=== PATIENT | female | born 1950 | race Caucasian/White ===

== ENCOUNTER 2017-10-10 18:41 | Emergency (ER) | payer OTHER ==
[2017-10-10] MEDS ORDERED: ONDANSETRON 4 MG/2 ML VIAL IVP ONE (18:53)
[2017-10-10] MEDS ORDERED: NS 1,000 ML IV ONE ×2 (18:53→19:49)
[2017-10-10 19:08] LABS: PLATELET COUNT 338 10^3/uL (150-400)
[2017-10-10] MEDS ORDERED: ACETAMINOPHEN 500 MG TAB PO ONE (19:50)
--- NOTE | 2017-10-10 20:41 | EDPHY ---
H & P Time Seen by Provider: 10/10/17 18:50 HPI/ROS: 66 yo F presents c/o vomiting and diarrhea that began at 2am, and continued all day, she feels dehydrated. She states she also has a headache. The headache is left sided and typical of headaches that she gets on a regular basis, shes sees a chiropracter for these headaches. She states they are often worsened with dehydration. Past Medical/Surgical History: gerd, htn Social History: denies alcohol or drug use Smoking Status: Former smoker Physical Exam: 66-year-old female alert and oriented no acute distress nontoxic appearance HEENT atraumatic normocephalic, extraocular muscles intact, anicteric Oropharynx negative for erythema negative exudate, tolerating her own secretions Neck supple no meningismus Lungs clear to auscultation bilaterally Heart regular rate and rhythm without murmur rub or gallop Abdomen nondistended normoactive bowel sounds soft nontender Back no CVA tenderness, no step-offs, no spinal tenderness Extremities no cyanosis clubbing or edema Neuro alert and oriented, no focal deficits Constitutional: Initial Vital Signs Temperature (C) 37.1 C 10/10/17 18:47 Heart Rate 112 H 10/10/17 18:47 Respiratory Rate 16 10/10/17 18:47 Blood Pressure 137/85 H 10/10/17 18:47 O2 Sat (%) 94 10/10/17 18:47 O2 Delivery Mode Room Air Allergies/Adverse Reactions: aspirin [Aspirin] Allergy (Severe, Verified 10/10/17 18:44) lisinopril [Lisinopril] Adverse Reaction (Mild, Verified 10/10/17 18:44) COUGH Home Medications: Medication Instructions Recorded Omeprazole 10/10/17 amLODIPine BESYLATE [Amlodipine 10/10/17 Besylate] amLODIPine BESYLATE [Norvasc 10 mg 10/10/17 (*)] Medical Decision Making ED Course/Re-evaluation: Patient seen and evaluated for vomiting, diarrhea, headache. IV established fluids started, ondansetron 4 mg IV push given Lab sent CBC within normal limits CMP within normal limits, except slightly decreased potassium 3.2 Patient feeling markedly better after initial fluids and ondansetron no longer having nausea but continues to have a headache, similar to headaches that she has had for many years she currently rates at a 5/10. Next she was given metoclopramide, diphenhydramine and Toradol After these medication she had complete relief of her headache and is now tolerating po. imp Gastroenteritis Headache Plan Discharge home Rest Follow up with primary care physician - Data Points Laboratory Results: Laboratory Results 10/10/17 19:00 10/10/17 19:00 10/10/17 10/10/17 19:00 19:00 WBC 10.18 10^3/uL H 10^3/uL (3.80-9.50) RBC 5.42 10^6/uL H 10^6/uL (4.18-5.33) Hgb 16.2 g/dL g/dL (12.6-16.3) Hct 47.4 % H % (38.0-47.0) MCV 87.5 fL fL (81.5-99.8) MCH 29.9 pg pg (27.9-34.1) MCHC 34.2 g/dL g/dL (32.4-36.7) RDW 12.6 % % (11.5-15.2) Plt Count 338 10^3/uL 10^3/uL (150-400) MPV 10.0 fL fL (8.7-11.7) Neut % (Auto) 88.2 % H % (39.3-74.2) Lymph % (Auto) 6.6 % L % (15.0-45.0) [place] % (Auto) 4.2 % L % (4.5-13.0) Eos % (Auto) 0.1 % L % (0.6-7.6) Baso % (Auto) 0.6 % % (0.3-1.7) Nucleat RBC Rel Count 0.0 % % (0.0-0.2) Absolute Neuts (auto) 8.98 10^3/uL H 10^3/uL (1.70-6.50) Absolute Lymphs (auto) 0.67 10^3/uL L 10^3/uL (1.00-3.00) Absolute Monos (auto) 0.43 10^3/uL 10^3/uL (0.30-0.80) Absolute Eos (auto) 0.01 10^3/uL L 10^3/uL (0.03-0.40) Absolute Basos (auto) 0.06 10^3/uL 10^3/uL (0.02-0.10) Absolute Nucleated RBC 0.00 10^3/uL 10^3/uL (0-0.01) Immature Gran % 0.3 % % (0.0-1.1) Immature Gran # 0.03 10^3/uL 10^3/uL (0.00-0.10) Sodium 139 mEq/L mEq/L (135-145) Potassium 3.3 mEq/L L mEq/L (3.5-5.2) Chloride 104 mEq/L mEq/L (97-110) Carbon Dioxide 22 mEq/l mEq/l (22-31) Anion Gap 13 mEq/L mEq/L (8-16) BUN 16 mg/dL mg/dL (7-23) Creatinine 0.9 mg/dL mg/dL (0.6-1.0) Estimated GFR > 60 Glucose 114 mg/dL H mg/dL (70-100) Calcium 9.4 mg/dL mg/dL (8.5-10.4) Total Bilirubin 0.7 mg/dL mg/dL (0.1-1.4) AST 16 IU/L IU/L (14-46) ALT 23 IU/L IU/L (9-52) Alkaline Phosphatase 80 IU/L IU/L (38-126) Total Protein 7.0 g/dL g/dL (6.3-8.2) Albumin 4.0 g/dL g/dL (3.5-5.0) Medications Given: Discontinued Medications Acetaminophen (Tylenol) 1,000 mg PO EDNOW ONE Stop: 10/10/17 19:51 Last Admin: 10/10/17 19:52 Dose: 1,000 mg Diphenhydramine HCl (Benadryl Injection) 25 mg IVP EDNOW ONE Stop: 10/10/17 20:52 Last Admin: 10/10/17 21:03 Dose: 25 mg Sodium Chloride (Ns) 1,000 mls @ 0 mls/hr IV ONCE ONE PRN Reason: Wide Open Stop: 10/10/17 18:54 Last Admin: 10/10/17 18:58 Dose: 1,000 mls Sodium Chloride (Ns) 1,000 mls @ 0 mls/hr IV ONCE ONE PRN Reason: Wide Open Stop: 10/10/17 19:50 Last Admin: 10/10/17 19:53 Dose: 1,000 mls Ketorolac Tromethamine (Toradol) 30 mg IVP EDNOW ONE Stop: 10/10/17 20:52 Last Admin: 10/10/17 21:02 Dose: 30 mg Metoclopramide HCl (Reglan Injection) 10 mg IVP EDNOW ONE Stop: 10/10/17 20:52 Last Admin: 10/10/17 21:04 Dose: 10 mg Ondansetron HCl (Zofran) 4 mg IVP EDNOW ONE Stop: 10/10/17 18:54 Last Admin: 10/10/17 18:58 Dose: 4 mg Departure - Departure Disposition: Home, Routine, Self-Care Clinical Impression: Vomiting and diarrhea, Dehydration, Headache Condition: Good Instructions: Dehydration (ED), Gastroenteritis (ED), Acute Headache (ED) Referrals: JAIDA GALVAN [Other] - As per Instructions
[2017-10-10] MEDS ORDERED: METOCLOPRAMIDE 10 MG/2 ML VIAL IVP ONE (20:51)
[2017-10-10] MEDS ORDERED: KETOROLAC 30 MG/1 ML SDV IVP ONE (20:51)
[2017-10-10 22:21] VITALS: BP 139/79
== END 2017-10-10 22:22 | disposition home or self-care (01) ==
LOC: CED 18:41
DX: E86.0 Dehydration (principal); R51 Headache; I10 Essential (primary) hypertension; Z87.891 Personal history of nicotine dependence
CPT/HCPCS: 80053-PO; 85025-PO; 96374; J1200; J1885; J2405; J2765